=== PATIENT | female | born 1960 | race Caucasian/White ===

== ENCOUNTER 2019-06-18 13:08 | Emergency (ER) | payer MEDICARE, OTHER ==
[~2019-06-18] VITALS: Ht 162.6 cm; Wt 92.5 kg
--- NOTE | 2019-06-18 13:33 | NUR ---
code stroke called by dr. araujo.
--- NOTE | 2019-06-18 13:35 | NUR ---
pt to ct scan
--- NOTE | 2019-06-18 13:36 | NUR ---
Called Telestroke Line, Dr. Pablo to call back.
--- NOTE | 2019-06-18 13:41 | NUR ---
dr. jones talking to alcon kumar
[2019-06-18 13:45] LABS: BASOPHILS # (AUTO) 0.1 K/uL (0.0-8.0); MONOCYTES # (AUTO) 0.4 K/uL (2.0-10.0); WHITE BLOOD COUNT (AUTO) 6.6 K/uL (3.8-11.8)
[2019-06-18 13:50] LABS: CARBON DIOXIDE 28 mmol/L (21-32); CHLORIDE 106 mmol/L (98-107); CREATININE 0.4 mg/dL (0.6-1.3); GLUCOSE 93 mg/dL (74-106); POTASSIUM 3.9 mmol/L (3.5-5.1); UREA NITROGEN, BLOOD 8 mg/dL (7-18)
[2019-06-18] MEDS ORDERED: ATOR20TA PO (13:50)
[2019-06-18] MEDS ORDERED: MORP15TA7 PO (13:50)
[2019-06-18] MEDS ORDERED: LORA2TAB PO (13:50)
[2019-06-18] MEDS ORDERED: PANT40TA4 PO (13:50)
[2019-06-18] MEDS ORDERED: VITAMIN B12 PO (13:50)
[2019-06-18] MEDS ORDERED: TRAZ-182 PO (13:50)
[2019-06-18] MEDS ORDERED: LAMO150T PO (13:50)
[2019-06-18] MEDS ORDERED: GABA300T26 PO (13:50)
[2019-06-18] MEDS ORDERED: MULT1TAB73 PO (13:50)
[2019-06-18] MEDS ORDERED: TRINTELLIX PO (13:50)
[2019-06-18] MEDS ORDERED: MEMA10TA PO (13:50)
[2019-06-18] MEDS ORDERED: SWABABLE VALVE TRANSFER SET EA MC ONE (13:51)
[2019-06-18] MEDS ORDERED: IV NORMAL SALINE 250 ML IV ONE (13:51)
[2019-06-18] MEDS ORDERED: IOHEXOL 350 100 ML INFUS..BTL ONE (13:51)
[2019-06-18] MEDS ORDERED: ASCO500C18 PO (13:51)
[2019-06-18 14:04] LABS: ALANINE AMINOTRANSFERASE 27 U/L (14-59); ALKALINE PHOSPHATASE 111 U/L (50-136); ASPARTATE AMINOTRANSFERASE 27 U/L (15-37); BILIRUBIN,DIRECT 0.1 mg/dL (0.0-0.2); BILIRUBIN,TOTAL 0.3 mg/dL (0.2-1.0); CHOLESTEROL 137 mg/dL (<200); HDL CHOLESTEROL 56 mg/dL (40-60); TOTAL PROTEIN, SERUM 6.6 g/dL (6.4-8.2); TRIGLYCERIDES 70 MG/DL (30-150)
--- NOTE | 2019-06-18 14:22 | NUR ---
pt back from ct. pt back on monitor. er md at bedside.
--- NOTE | 2019-06-18 14:25 | NUR ---
pt talking to neurologist over the tele stroke, while pt at bedside.
[2019-06-18] MEDS: ALTEPLASE 100 MG VIAL IV ONE ×2 (14:45→14:50)
--- NOTE | 2019-06-18 14:45 | NUR ---
Pt signed consent for t-PA after she and her spoke in length with (via tele neuro) and .
[2019-06-18 14:59] LABS: BASOPHILS % (AUTO) 1.4 % (0.0-2.0); EOSINOPHILS # (AUTO) 0.1 K/uL (0.0-0.7); HEMATOCRIT 36.9 % (31.2-41.9); HEMOGLOBIN 12.2 g/dL (10.9-14.3); LYMPHOCYTES # (AUTO) 1.8 K/uL (20.0-40.0); LYMPHOCYTES % (AUTO) 27.9 % (20.5-51.5); MEAN CORPUSCULAR HEMOGLOBIN 26.5 uug (24.7-32.8); MEAN CORPUSCULAR HGB CONC 33 g/dL (32.3-35.6); MONOCYTES % (AUTO) 6.3 % (0.0-11.0); NEUTROPHILS # (AUTO) 4.2 K/uL (1.8-8.9); NEUTROPHILS % (AUTO) 63.4 % (38.5-71.5); PLATELET COUNT (AUTO) 228 K/uL (179-408); RED BLOOD CELL COUNT(AUTO) 4.61 MIL/uL (3.63-4.92)
--- NOTE | 2019-06-18 15:10 | NUR ---
pt co headache that is worse than when we started the tpa. notified. tpa stopped. called ct for pt to go to ct.
[2019-06-18] MEDS ORDERED: ALTEPLASE 100 MG VIAL IV ONE ×2 (15:15→18:15)
--- NOTE | 2019-06-18 15:29 | NUR ---
pt to ct scan per md order.
--- NOTE | 2019-06-18 15:45 | NUR ---
pt back from ct scan.. pt speech is clear at this point. pt insisted on bedside commode instead of bed [place]. md agreed. pt able to sit on the commode with no difficulty. no weakness noticed.
--- NOTE | 2019-06-18 15:50 | NUR ---
pt refusing the activase to be started regardless of the result of ct. md notifed. Addendum: 06/18/19 at 1758 by OBED pt axox4, pt at bedside and states that the pt is totally aware of the decision she is making
--- NOTE | 2019-06-18 15:50 | NUR ---
Pt back from CT. Pt states she wants to ambulate to the restroom. Per pt may not ambulate at this time due to safety risk. Pt refused to be connected to quality assurance monitor final, pulse ox and BP. notified.
--- NOTE | 2019-06-18 16:28 | NUR ---
Called CCT, spoke with Moises and facesheet faxed to [phone] as requested.
--- NOTE | 2019-06-18 16:43 | NUR ---
pt requested for coffee. oked. pt talking to at bedside.
--- NOTE | 2019-06-18 17:10 | NUR ---
transfer team from [place] at bedside to transfer the pt. but pt now refueses to be transfered.pt "wants to go home"
--- NOTE | 2019-06-18 17:30 | NUR ---
Patient does not wish to proceed with medical care recommended by Dr. Kenrick araujo ). Patient given information related to possible complications, up to and including , which could occur as a result of leaving the hospital at this time. Patient verbalizes understanding of risks involved due to leaving against medical advice. Patient has signed AMA form.pt had multiple time long discussions with dr. araujo about her medical decission. pt walks in steady gait. pt accompnied by
[2019-06-18 18:01] VITALS: BP 119/71
== END 2019-06-18 17:30 | disposition left against medical advice (07) ==
LOC: ER 13:08
DX: I63.9 Cerebral infarction, unspecified (principal); I25.10 Atherosclerotic heart disease of native coronary artery without angina pectoris; E11.9 Type 2 diabetes mellitus without complications; G43.909 Migraine, unspecified, not intractable, without status migrainosus; F32.9 Major depressive disorder, single episode, unspecified; F03.90 Unspecified dementia, unspecified severity, without behavioral disturbance, psychotic disturbance, mood disturbance, and anxiety; Z90.49 Acquired absence of other specified parts of digestive tract; Z91.013 Allergy to seafood; Z91.018 Allergy to other foods; Z79.899 Other long term (current) drug therapy
CPT/HCPCS: 36415; 37195; 70450; 70496; 71045; 80048; 80061; 80076; 84484; 85025; 85730; 93005; 99291; J2997; Q9967; 70030-TC; A4663; J3490; J7050